=== PATIENT | male | born 1945 | race African-American/Black ===

== ENCOUNTER 2024-08-19 13:17 | Inpatient (IN) ==
[2024-08-19] MEDS: LR 1,000 ML IV 1,000 ML IV SCH (18:50)
[2024-08-19 18:54] LABS: BASOPHILS % (AUTO) 0.6 % (0.2-1.0); EOSINOPHILS # (AUTO) 0.4 x10^3/uL (0.0-0.2); EOSINOPHILS % (AUTO) 5.1 % (0.9-2.9); HEMATOCRIT 25.8 % (42.0-54.0); HEMOGLOBIN 8.3 g/dL (13.5-18.0); LYMPHOCYTES # (AUTO) 0.9 X10^3/uL (1.3-2.9); LYMPHOCYTES % (AUTO) 10.7 % (21.0-51.0); MEAN CORPUSCULAR HEMOGLOBIN 28.5 pg (27.0-34.0); MEAN CORPUSCULAR HGB CONC 32.2 g/dL (33.0-35.0); MEAN CORPUSCULAR VOLUME 88.4 fL (80.0-100.0); MEAN PLATELET VOLUME 7.3 fL (7.4-11.0); MONOCYTES # (AUTO) 0.4 x10^3/uL (0.3-0.8); MONOCYTES % (AUTO) 4.9 % (0.0-13.0); NEUTROPHILS # (AUTO) 6.8 x10^3/uL (2.2-4.8); NEUTROPHILS % (AUTO) 78.7 % (42.0-75.0); PLATELET COUNT 284 X10^3/uL (150.0-450.0); RED BLOOD COUNT 2.92 X10^6/uL (4.7-6.0); RED CELL DISTRIBUTION WIDTH 16.3 % (11.6-16.5); WHITE BLOOD COUNT 8.7 X10^3/uL (3.6-10.0)
[2024-08-19] MEDS ORDERED: PHARMACY CONSULT LTC MEDICATIONS XX SCH (19:00)
[2024-08-19 19:02] LABS: ALBUMIN 2.7 g/dL (3.4-5.0); CALCIUM 9.2 mg/dL (8.5-10.1); CARBON DIOXIDE 22.6 mmol/L (21-32); COR CA(FOR HYPOALB) 10.2 mg/dL (8.5-10.1); CREATININE 2.57 mg/dL (0.70-1.30); POTASSIUM 5.5 mmol/L (3.5-5.1); TOTAL PROTEIN 9.8 g/dL (6.4-8.2)
[2024-08-19] MEDS: MAXIPIME VIAL 1 GRAM 1 G in NS 50 ML IV 50 ML IV SCH (20:45)
[2024-08-20 05:46] LABS: BASOPHILS % (AUTO) 0.6 % (0.2-1.0); EOSINOPHILS # (AUTO) 0.6 x10^3/uL (0.0-0.2); EOSINOPHILS % (AUTO) 8.3 % (0.9-2.9); HEMATOCRIT 22.5 % (42.0-54.0); HEMOGLOBIN 7.3 g/dL (13.5-18.0); LYMPHOCYTES # (AUTO) 1.3 X10^3/uL (1.3-2.9); LYMPHOCYTES % (AUTO) 17.5 % (21.0-51.0); MEAN CORPUSCULAR HEMOGLOBIN 28.3 pg (27.0-34.0); MEAN CORPUSCULAR HGB CONC 32.4 g/dL (33.0-35.0); MEAN CORPUSCULAR VOLUME 87.5 fL (80.0-100.0); MONOCYTES # (AUTO) 0.4 x10^3/uL (0.3-0.8); MONOCYTES % (AUTO) 5.8 % (0.0-13.0); NEUTROPHILS % (AUTO) 67.8 % (42.0-75.0); PLATELET COUNT 266 X10^3/uL (150.0-450.0); RED BLOOD COUNT 2.57 X10^6/uL (4.7-6.0); RED CELL DISTRIBUTION WIDTH 16.5 % (11.6-16.5); WHITE BLOOD COUNT 7.4 X10^3/uL (3.6-10.0)
[2024-08-20 06:00] LABS: ALBUMIN 2.2 g/dL (3.4-5.0); CALCIUM 8.6 mg/dL (8.5-10.1); CARBON DIOXIDE 25.4 mmol/L (21-32); CREATININE 2.28 mg/dL (0.70-1.30); POTASSIUM 5.1 mmol/L (3.5-5.1); TOTAL PROTEIN 8.4 g/dL (6.4-8.2)
[2024-08-20] MEDS: NORCO 5/325 MG TAB PO PRN (11:28)
[2024-08-20] MEDS ORDERED: MELATONIN PO PRN (11:52)
[2024-08-20] MEDS ORDERED: NORCO 5/325 MG TAB PO PRN (11:52)
[2024-08-20] MEDS ORDERED: MILK OF MAGNESIA PO PRN (12:00)
[2024-08-20] MEDS ORDERED: ROBITUSSIN DM PO PRN (12:36)
--- NOTE | 2024-08-20 13:33 | DR.H&P ---
H&P History & Physical for Day of: H&P Date: 08/19/24 Chief Complaint Chief Complaint: infected wounds right foot, patient is not ambulatory and has history of CVA History of Present Illness History of Present Illness: This is an 79-year-old male currently resident of a intermediate facility with history of left above-knee amputation, diabetes, hypertension, hyperlipidemia, history of cerebrovascular accident with residual, anemia, gastro-esophageal reflux disease and atherosclerotic heart disease who was admitted to the hospital in [place], [place] for wounds to the right foot penetrating into the bone. Patient has studies consistent with osteomyelitis confirmed by podiatry. Patient was transferred to [facility] for definitive treatment of this which will probably require above-knee amputation Past Medical History Past Medical History: Coronary Artery Disease, Depression, Diabetes, Dyslipidemia, Gout and Hypertension Additional Medical History: BPH, dysphagia Past Surgical History Surgical History: Ortho Surgery and Other (left above knee amputation ) Social History Does patient currently use any type of tobacco product: No Have you used tobacco products in the last 12 months: No Alcohol Use: None Drug Use: None Medications Home Medications: Home Medications Medication Instructions Recorded Confirmed Type acetaminophen 325 mg tablet 650 mg PO Q4H PRN pain,fev er 08/19/24 08/19/24 History allopurinol 100 mg tablet 100 mg PO QDAY 08/19/2408/08 History amino acids-protein hydrolysate 15 60 ml PO TID 08/19/24 History gram-60 kcal/30 mL oral liquid (Proteinex) amlodipine 5 mg tablet 5 mg PO QDAY 08/19/24 History aspirin 81 mg chewable tablet 81 mg PO QDAY 08/19/24 0 08/19/24 History atorvastatin 80 mg tablet 80 mg PO HS 08/19/24 5 History cholecalciferol (vitamin D3) 25 25 mcg PO QDAY 5 08/19/24 History mcg (1,000 unit) tablet collagenase clostridium histo. 250 1 applic topical US EASDIRECTD 08/19/24 08/19/24 History unit/gram topical ointment (Santyl) dapagliflozin propanediol 5 mg 5 mg PO QDAY 08/19/24 0 08/19/24 History tablet (Farxiga) dextromethorphan-guaifenesin 5 10 ml PO Q4HR PRN 08/1908/19/24 History mg-100 mg/5 mL oral liquid (Robitussin Cough-Chest Congestion DM) docusate sodium 100 mg capsule 100 mg PO BID 08/19/24 08/19/24 History (Colace) famotidine 40 mg tablet (Pepcid) 40 mg PO HS 08/19/24 08/19/24 History folic acid 1 mg tablet 1 mg PO DAILY 08/19/2408/19 History gabapentin 100 mg tablet 200 mg PO BID 08/19/2408/19 History hydrocodone 5 mg-acetaminophen 325 1 tab PO Q6HR PRN P ain 08/19/24 08/19/24 History mg tablet magnesium hydroxide 400 mg/5 mL See Rx Instructions .R oute .COMPLEX 08/19/24 08/19/24 History oral suspension (Milk of Magnesia) melatonin 5 mg tablet 10 mg PO HS PRN 08/19/2403/03 History metoprolol succinate 25 mg 25 mg PO QDAY 08/19/2408/08 History tablet,extended release 24 hr mirtazapine 7.5 mg tablet 7.5 mg PO QHS 08/19/2408/19 History multivitamin 1 tab PO DAILY 08/19/2408/08 History nut.tx.gluc.intol,lac-free,soy 1 ea PO TID 08/19/24 History (Glucerna oral liquid) nutritional supplements 1 ea PO BID 08/19/24 5 History nystatin-triamcinolone 100,000 1 applic topical QDAY 0 08/19/24 08/19/24 History unit/g-0.1 % topical cream polyethylene glycol 3350 17 17 g PO DAILY 08/19/2403/03 History gram/dose oral powder (Miralax) sodium hypochlorite 0.25 % 1 applic topical USEASDIREC TD 08/19/24 08/19/24 History solution (Dakin's Solution) tamsulosin 0.4 mg capsule 0.4 mg PO DAILY 08/19/2403/03 History zinc oxide 1 applic topical DAILY 08/1908/19/24 History Allergies Allergies Allergy/AdvReac Type Severity Reaction Status Date / Time promethazine (From Phenergan) AdvReac Verified 08/19/24 18:26 Labs 08/20/24 05:10 08/20/24 05:10 Labs: Laboratory WBC 7.4 X10^3/uL (3.6-10.0) 08/20/24 05:10 RBC 2.57 X10^6/uL (4.7-6.0) L 08/20/24 05:10 Hgb 7.3 g/dL (13.5-18.0) L 08/20/24 05:10 Hct 22.5 % (42.0-54.0) L 08/20/24 05:10 MCV 87.5 fL (80.0-100.0) 08/20/24 05:10 MCH 28.3 pg (27.0-34.0) 08/20/24 05:10 MCHC 32.4 g/dL (33.0-35.0) L 08/20/24 05:10 RDW 16.5 % (11.6-16.5) 08/20/24 05:10 Plt Count 266 X10^3/uL (150.0-450.0) 08/20/24 05:10 MPV 8.0 fL (7.4-11.0) 08/20/24 05:10 Neut % (Auto) 67.8 % (42.0-75.0) 08/20/24 05:10 Lymph % (Auto) 17.5 % (21.0-51.0) L 08/20/24 05:10 [place] % (Auto) 5.8 % (0.0-13.0) 08/20/24 05:10 Eos % (Auto) 8.3 % (0.9-2.9) H 08/20/24 05:10 Baso % (Auto) 0.6 % (0.2-1.0) 08/20/24 05:10 Neut # (Auto) 5.0 x10^3/uL (2.2-4.8) H 08/20/24 05:10 Lymph # (Auto) 1.3 X10^3/uL (1.3-2.9) 08/20/24 05:10 [place] # (Auto) 0.4 x10^3/uL (0.3-0.8) 08/20/24 05:10 Eos # (Auto) 0.6 x10^3/uL (0.0-0.2) H 08/20/24 05:10 Baso # (Auto) 0.0 X10^3/uL (0.0-0.1) 08/20/24 05:10 Absolute Nucleated RBC 0.1 /100WBC 08/20/24 05:10 Sodium 142 mmol/L (136-145) 08/20/24 05:10 Corrected Sodium 143 mmol/L (136-145) 08/20/24 05:10 Potassium 5.1 mmol/L (3.5-5.1) 08/20/24 05:10 Chloride 109 mmol/L (98-107) H 08/20/24 05:10 Carbon Dioxide 25.4 mmol/L (21-32) 08/20/24 05:10 BUN 56 mg/dL (7-18) H 08/20/24 05:10 Creatinine 2.28 mg/dL (0.70-1.30) H 08/20/24 05:10 Est GFR (MDRD) Af Amer 36 (>60) L 08/20/24 05:10 Est GFR (MDRD) Non-Af 29 (>60) L 08/20/24 05:10 Glucose 127 mg/dL (65-99) H 08/20/24 05:10 POC Glucose (mg/dL) 159 mg/dL (65-99) H 08/20/24 12:13 Calcium 8.6 mg/dL (8.5-10.1) 08/20/24 05:10 Corrected Calcium 10.0 mg/dL (8.5-10.1) 08/20/24 05:10 Total Bilirubin 0.30 mg/dL (0.2-1.0) 08/20/24 05:10 AST 19 Units/L (15-37) 08/20/24 05:10 ALT 48 Units/L (12-78) 08/20/24 05:10 Alkaline Phosphatase 94 Units/L (46-116) 08/20/24 05:10 Total Protein 8.4 g/dL (6.4-8.2) H 08/20/24 05:10 Albumin 2.2 g/dL (3.4-5.0) L 08/20/24 05:10 Globulin 6.2 g/dL (2.5-4.5) H 08/20/24 05:10 Albumin/Globulin Ratio 0.4 Ratio (1.1-2.1) L 08/20/24 05:10 Physical Exam Vital Signs: Vital Signs Temperature 98.0 F Temperature 98.5 F Pulse Rate [Right Radial] 93 Pulse Rate [Right Radial] 95 Respiratory Rate 16 Respiratory Rate 18 Respiratory Rate 16 Blood Pressure [Right Arm] 131/66 Blood Pressure [Right Arm] 132/67 O2 Sat by Pulse Oximetry 100 O2 Sat by Pulse Oximetry 99 Oriented: Person; negative Time or Place Eyes: Normal Ear: Normal Nose: Normal Throat: Normal Respiratory: Diminished Throughout Cardiovascular: Normal and Other (Healed left above-knee amputation. Open wounds of the right foot penetrating to the bone. No palpable pulses right ankle) : Normal Auscultation: Bowel Sounds: Normal Palpation: Normal Tenderness: Normal Skin: Other (See above) Musculoskeletal: Right (Right foot wounds as described above, mild contraction right knee) and Left (Healed left above-knee amputation) Psychiatric: Other (Cannot assess. Patient does not make sense when answering questions) Mood Description: Depressed and Anxious Affect: Anxious and Depressed Assessment/Plan (1) Atherosclerosis of [place] arteries of extremities with intermittent claudication, right leg: Status: Acute Plan: Will have patient seen by the hospitalist service and consult for fitness for right above-knee amputation.. I contacted Dr. Tucker by text and he is aware. (2) Essential (primary) hypertension: Status: Acute Plan: Home medications (3) Depression: Status: Acute Plan: Home medications (4) Acid reflux: Status: Acute Plan: Home medications (5) Constipation: Status: Acute Plan: Home medications (6) Hyperlipidemia: Status: Acute Plan: Home medications (7) Gout: Status: Acute Plan: Home medications (8) BPH (benign prostatic hyperplasia): Status: Acute (9) Dysphagia: Status: Acute Plan: Soft diet (10) Acute cerebrovascular accident (CVA): Status: Acute Plan: Observation Review H&P Reviewed: Yes Patient was examined?: Yes
[2024-08-20] MEDS: MIRALAX POWDER (255 GRAMS BTL) PO SCH (14:06)
[2024-08-20] MEDS: ASPIRIN 81 MG CHEWTAB PO SCH (14:07)
[2024-08-20] MEDS: VITAMIN D3 25 mcg (1,000 UNITS) PO SCH (14:07)
[2024-08-20] MEDS: COLACE CAP 100 MG PO SCH (14:07)
[2024-08-20] MEDS: ZYLOPRIM PO SCH (14:07)
[2024-08-20] MEDS: NORVASC TAB 5 MG PO SCH (14:07)
[2024-08-20] MEDS: FLOMAX PO SCH (14:07)
[2024-08-20] MEDS: TOPROL XL PO SCH (14:07)
[2024-08-20] MEDS: FOLIC ACID TAB 1 MG PO SCH (14:07)
[2024-08-20] MEDS: FARXIGA PO SCH (14:07)
--- NOTE | 2024-08-20 15:01 | EKG ---
Test Reason : SURGICAL CLEARENCE Blood Pressure : */* mmHG Vent. Rate : 86 BPM Atrial Rate : 86 BPM P-R Int : 242 ms QRS Dur : 84 ms QT Int : 364 ms P-R-T Axes : 37 5 105 degrees QTc Int : 435 ms Sinus rhythm with 1st degree AV block Nonspecific T wave abnormality Abnormal ECG No previous ECGs available Confirmed by Navi Alex MD ([id number]) on 08/20/2024 5:36:48 PM Referred By: Confirmed By: Navi Alex MD
--- NOTE | 2024-08-20 16:36 | NOTE.SOAP ---
Soap Note Note for Day of Date of Exam: 08/20/24 Subjective Data Subjective Data: Patient admitted with gangrenous changes of the right foot in need of right leg amputation. Multiple medical problems. Objective Data Temperature: 98.0 F Pulse Rate: 93 Respiratory Rate: 16 Blood Pressure: 131/66 O2 Sat by Pulse Oximetry: 100 Objective Data: exam unchanged Assessment Assessment: Ischemic right foot with open wounds. Patient not ambulatory. Plan Plan: Consult Dr. Tucker. Patient will require right above-knee amputation tentatively scheduled for Friday
[2024-08-20] MEDS: REMERON PO SCH (21:37)
[2024-08-20] MEDS: LIPITOR TAB 80 MG PO SCH (21:38)
[2024-08-20] MEDS: NEURONTIN CAP 100 MG PO SCH (21:38)
[2024-08-20] MEDS: PEPCID TAB 40 MG PO SCH (21:39)
[2024-08-20 23:00] VITALS: BMI 20.9
[2024-08-21 06:45] LABS: ALANINE AMINOTRANSFERASE 43 Units/L (12-78); ALBUMIN 2.1 g/dL (3.4-5.0); ALKALINE PHOSPHATASE 89 Units/L (46-116); ASPARTATE AMINO TRANSFERASE 20 Units/L (15-37); BASOPHILS # (AUTO) 0.1 X10^3/uL (0.0-0.1); BASOPHILS % (AUTO) 0.8 % (0.2-1.0); BLOOD UREA NITROGEN 46 mg/dL (7-18); CALCIUM 8.6 mg/dL (8.5-10.1); CARBON DIOXIDE 24.7 mmol/L (21-32); CHLORIDE 109 mmol/L (98-107); COR CA(FOR HYPOALB) 10.1 mg/dL (8.5-10.1); CREATININE 2.19 mg/dL (0.70-1.30); EOSINOPHILS # (AUTO) 0.7 x10^3/uL (0.0-0.2); EOSINOPHILS % (AUTO) 9.3 % (0.9-2.9); GLUCOSE 100 mg/dL (65-99); HEMATOCRIT 21.5 % (42.0-54.0); LYMPHOCYTES # (AUTO) 1.4 X10^3/uL (1.3-2.9); LYMPHOCYTES % (AUTO) 19.2 % (21.0-51.0); MEAN CORPUSCULAR HEMOGLOBIN 28.5 pg (27.0-34.0); MEAN CORPUSCULAR HGB CONC 32.8 g/dL (33.0-35.0); MEAN CORPUSCULAR VOLUME 86.7 fL (80.0-100.0); MEAN PLATELET VOLUME 8.3 fL (7.4-11.0); MONOCYTES # (AUTO) 0.5 x10^3/uL (0.3-0.8); MONOCYTES % (AUTO) 6.6 % (0.0-13.0); NEUTROPHILS # (AUTO) 4.6 x10^3/uL (2.2-4.8); NEUTROPHILS % (AUTO) 64.1 % (42.0-75.0); PLATELET COUNT 233 X10^3/uL (150.0-450.0); POTASSIUM 4.9 mmol/L (3.5-5.1); RED BLOOD COUNT 2.47 X10^6/uL (4.7-6.0); RED CELL DISTRIBUTION WIDTH 16.2 % (11.6-16.5); SODIUM 141 mmol/L (136-145); TOTAL PROTEIN 6.9 g/dL (6.4-8.2); WHITE BLOOD COUNT 7.2 X10^3/uL (3.6-10.0); eGFR NON BLACK RACES 31 (>60)
[2024-08-21 09:03] LABS: RETICULOCYTE % 0.87 % (0.8-2.2)
[2024-08-21] MEDS: TAB-A-VITE PO SCH (09:04)
[2024-08-21] MEDS ORDERED: BUTT CREAM (COMPOUND) EXT PRN (09:04)
[2024-08-21 09:36] LABS: IRON 32 ug/dL (50-175); TOTAL IRON BINDING CAPACITY 149 ug/dL (250-450)
[2024-08-21] MEDS: SANTYL EXT SCH (10:45)
[2024-08-21] MEDS: DAKINS SOLUTION FULL STRENGTH EXT SCH (10:45)
[2024-08-21] MEDS: NS 100 ML IV 100 ML with VENOFER 200 MG IV ONE (15:15)
[2024-08-21] MEDS: PROCRIT or EPOGEN VIAL 10,000 UNITS SC ONE (15:17)
[2024-08-21] MEDS: NovoLIN R (or HumuLIN R) SUBCUT PRN (17:00)
--- NOTE | 2024-08-21 18:14 | DR.CONSULT ---
CONSULT Consultation for Day of: Date: 08/21/24 Chief Complaint Chief Complaint: foot wound Allergies Allergies Allergy/AdvReac Type Severity Reaction Status Date / Time promethazine (From Phenergan) AdvReac Verified 08/19/24 18:26 History of Present Illness History of Present Illness: Consulted by vascular surgery for preoperative clearance and management of chronic conditions. Has a right foot wound that is not healing. Pending amputation once medically clear. Already has a left AKA. Labs overnight show worsening anemia. Patient refuses blood and blood products due to adventism preferences. He will except Procrit and iron. Iron panel has been drawn with Procrit and iron infusion ordered. ROS: 12 point ROS difficult to obtain due to dysarthria but chart reviewed, discussion with nurses, and discussion with patient as best as able show negative except as noted above. PE: Elderly male in no acute distress. Dysarthric speech. Hearing intact conversation. EOMI. Heart regular rate and rhythm with a murmur. Lungs are clear. Bowel sounds are present and belly is soft. Right foot wound is malodorous. Past Medical History Past Medical History: Coronary Artery Disease, Depression, Diabetes, Dyslipidemia, Gout and Hypertension Additional Medical History: BPH, dysphagia Past Surgical History Surgical History: Ortho Surgery and Other (left above knee amputation ) Social History Does patient currently use any type of tobacco product: No Have you used tobacco products in the last 12 months: No Alcohol Use: None Drug Use: None Medications Home Medications: promethazine (From Phenergan) Adverse Reaction (Verified 08/19/24 18:26) CONTINUE taking the following medications acetaminophen 325 mg tablet 650 mg PO Q4H PRN pain,fever 08/19/24 [History] allopurinol 100 mg tablet 100 mg PO QDAY 08/19/24 [History] amino acids-protein hydrolysate 15 gram-60 kcal/30 mL oral liquid (Proteinex) 60 ml PO TID 08/19/24 [History] amlodipine 5 mg tablet 5 mg PO QDAY 08/19/24 [History] aspirin 81 mg chewable tablet 81 mg PO QDAY 08/19/24 [History] atorvastatin 80 mg tablet 80 mg PO HS 08/19/24 [History] cholecalciferol (vitamin D3) 25 mcg (1,000 unit) tablet 25 mcg PO QDAY 08/19/24 [History] collagenase clostridium histo. 250 unit/gram topical ointment (Santyl) 1 applic topical USEASDIRECTD 08/19/24 [History] dapagliflozin propanediol 5 mg tablet (Farxiga) 5 mg PO QDAY 08/19/24 [History] dextromethorphan-guaifenesin 5 mg-100 mg/5 mL oral liquid (Robitussin Cough- Chest Congestion DM) 10 ml PO Q4HR PRN 08/19/24 [History] docusate sodium 100 mg capsule (Colace) 100 mg PO BID 08/19/24 [History] famotidine 40 mg tablet (Pepcid) 40 mg PO HS 08/19/24 [History] folic acid 1 mg tablet 1 mg PO DAILY 08/19/24 [History] gabapentin 100 mg tablet 200 mg PO BID 08/19/24 [History] hydrocodone 5 mg-acetaminophen 325 mg tablet 1 tab PO Q6HR PRN Pain 08/19/24 [History] magnesium hydroxide 400 mg/5 mL oral suspension (Milk of Magnesia) See Rx Instructions .Route .COMPLEX 08/19/24 [History] melatonin 5 mg tablet 10 mg PO HS PRN 08/19/24 [History] metoprolol succinate 25 mg tablet,extended release 24 hr 25 mg PO QDAY 08/19/24 [History] mirtazapine 7.5 mg tablet 7.5 mg PO QHS 08/19/24 [History] multivitamin 1 tab PO DAILY 08/19/24 [History] nut.tx.gluc.intol,lac-free,soy (Glucerna oral liquid) 1 ea PO TID 08/19/24 [History] nutritional supplements 1 ea PO BID 08/19/24 [History] nystatin-triamcinolone 100,000 unit/g-0.1 % topical cream 1 applic topical QDAY 08/19/24 [History] polyethylene glycol 3350 17 gram/dose oral powder (Miralax) 17 g PO DAILY 08/19/24 [History] sodium hypochlorite 0.25 % solution (Dakin's Solution) 1 applic topical USEASDIRECTD 08/19/24 [History] tamsulosin 0.4 mg capsule 0.4 mg PO DAILY 08/19/24 [History] zinc oxide 1 applic topical DAILY 08/19/24 [History] Physical Exam Vital Signs: Vital Signs Temperature 97.8 F Temperature 98.1 F Pulse Rate [Right Radial] 90 Pulse Rate [Right Radial] 84 Respiratory Rate 18 Respiratory Rate 18 Respiratory Rate 18 Blood Pressure [Right Arm] 172/70 Blood Pressure [Right Arm] 133/66 O2 Sat by Pulse Oximetry 95 O2 Sat by Pulse Oximetry 99 Plan (1) Anemia due to chronic kidney disease: Status: Acute Qualifiers: Chronic kidney disease stage: stage 3 (moderate) Chronic kidney disease stage 3 subtype: stage 3b (GFR 30-44) Qualified Code(s): N18.32 - Chronic kidney disease, stage 3b; D63.1 - Anemia in chronic kidney disease Narrative Support Text: Procrit and iron infusion over the weekend. Monitor labs closely. No blood or blood products given patient's request. (2) Cardiac murmur: Status: Acute Narrative Support Text: Needs an echo. (3) Atherosclerosis of [place] arteries of extremities with intermittent claudication, right leg: Status: Acute Narrative Support Text: Pending AKA with surgery after cardiac clearance. (4) Essential (primary) hypertension: Status: Acute (5) Depression: Status: Acute Qualifiers: Depression Type: major depressive disorder Major depression recurrence: recurrent Active/Remission status: in partial remission Qualified Code(s): F33.41 - Major depressive disorder, recurrent, in partial remission (6) Acid reflux: Status: Acute Qualifiers: Esophagitis presence: without esophagitis Qualified Code(s): K21.9 - Gastro-esophageal reflux disease without esophagitis (7) Constipation: Status: Acute Qualifiers: Constipation type: chronic idiopathic constipation Qualified Code(s): K59.04 - Chronic idiopathic constipation (8) Hyperlipidemia: Status: Acute Qualifiers: Hyperlipidemia type: mixed hyperlipidemia Qualified Code(s): E78.2 - Mixed hyperlipidemia (9) Gout: Status: Acute Qualifiers: Gout site: unspecified site Gout etiology: due to renal impairment Chronicity: chronic Presence of tophus: without tophus Qualified Code(s): M1A.30X0 - Chronic gout due to renal impairment, unspecified site, without tophus (tophi) (10) BPH (benign prostatic hyperplasia): Status: Acute Qualifiers: Lower urinary tract symptom presence: symptoms present Lower urinary tract symptom detail: post-void dribbling Qualified Code(s): N40.1 - Benign prostatic hyperplasia with lower urinary tract symptoms; N39.43 - Post-void dribbling (11) Dysphagia: Status: Acute Qualifiers: Dysphagia type: unspecified Qualified Code(s): R13.10 - Dysphagia, unspecified (12) Acute cerebrovascular accident (CVA): Status: Acute Narrative Support Text: With hemiparesis, dysarthria, and dysphagia.
[2024-08-21] MEDS: SNACK - Diabetic Appropriate PO SCH (20:00)
[2024-08-22 06:03] LABS: BASOPHILS % (AUTO) 0.5 % (0.2-1.0); EOSINOPHILS # (AUTO) 0.6 x10^3/uL (0.0-0.2); EOSINOPHILS % (AUTO) 9.2 % (0.9-2.9); LYMPHOCYTES # (AUTO) 1.1 X10^3/uL (1.3-2.9); MEAN CORPUSCULAR HEMOGLOBIN 28.4 pg (27.0-34.0); MEAN CORPUSCULAR HGB CONC 32.9 g/dL (33.0-35.0); MEAN CORPUSCULAR VOLUME 86.5 fL (80.0-100.0); MEAN PLATELET VOLUME 7.8 fL (7.4-11.0); MONOCYTES # (AUTO) 0.5 x10^3/uL (0.3-0.8); MONOCYTES % (AUTO) 7.2 % (0.0-13.0); NEUTROPHILS # (AUTO) 4.5 x10^3/uL (2.2-4.8); NEUTROPHILS % (AUTO) 67.1 % (42.0-75.0); PLATELET COUNT 241 X10^3/uL (150.0-450.0); RED BLOOD COUNT 2.42 X10^6/uL (4.7-6.0); WHITE BLOOD COUNT 6.7 X10^3/uL (3.6-10.0)
[2024-08-22 06:05] LABS: HEMOGLOBIN 6.9 g/dL (13.5-18.0)
[2024-08-22 06:14] LABS: ALANINE AMINOTRANSFERASE 44 Units/L (12-78); ALBUMIN 2.1 g/dL (3.4-5.0); ALKALINE PHOSPHATASE 88 Units/L (46-116); ASPARTATE AMINO TRANSFERASE 21 Units/L (15-37); BLOOD UREA NITROGEN 36 mg/dL (7-18); CALCIUM 8.4 mg/dL (8.5-10.1); CARBON DIOXIDE 25.2 mmol/L (21-32); CHLORIDE 108 mmol/L (98-107); COR CA(FOR HYPOALB) 9.9 mg/dL (8.5-10.1); CREATININE 2.07 mg/dL (0.70-1.30); GLUCOSE 103 mg/dL (65-99); POTASSIUM 4.8 mmol/L (3.5-5.1); SODIUM 140 mmol/L (136-145); TOTAL PROTEIN 6.7 g/dL (6.4-8.2); eGFR NON BLACK RACES 33 (>60)
--- NOTE | 2024-08-22 08:07 | RAD ---
EXAM: Portable AP chest HISTORY: Preop COMPARISON: None br.br.br pulmonary disease, CHF, pleural effusion or other acute process. IMPRESSION: No acute chest findings. THIS IS AN ELECTRONICALLY VERIFIED FINAL REPORT 08/22/2024 8:03 AM - Electronically signed by Jerman Cardenas MD
[2024-08-22] MEDS: INJECTAFER 750 MG in NS 250 ML IV 250 ML IV NR (10:48)
--- NOTE | 2024-08-22 16:23 | NOTE.SOAP ---
Soap Note Note for Day of Date of Exam: 08/22/24 Subjective Data Subjective Data: Protein levels low, hemoglobin 6.9, GFR stable. Did get Procrit and iron yesterday. Surgery on hold for now. Echo ordered for tomorrow. No overnight events per patient or nursing. Objective Data Objective Data: Elderly male in no acute distress. Dysarthric speech. Heart regular rate and rhythm but systolic murmur present. Lungs clear with shallow respirations. Bowel sounds present. Wound less malodorous today. Assessment Assessment: 1. Systolic murmur 2. Anemia of chronic kidney disease 3B 3. DM2 with hyperglycemia and CKD 3B 4. CVA with residual left, nondominant sided weakness, dysarthria, dysphagia, and vascular dementia. Plan Plan: Surgery on hold. Echo in the morning. Continue antibiotics. Continue wound care.
--- NOTE | 2024-08-23 00:09 | NOTE.SOAP ---
Soap Note Note for Day of Date of Exam: 08/22/24 Subjective Data Subjective Data: Patient with gangrenous changes of the right foot. Already has had left above- knee amputation not ambulatory. Patient is Religious and hemoglobin has been noted to be 6.9 after hydration. Tentatively was planning about amputation and we will put that on hold for now. Objective Data Temperature: 98.2 F Pulse Rate: 86 Respiratory Rate: 18 Blood Pressure: 125/59 O2 Sat by Pulse Oximetry: 98 Objective Data: Right foot dressed. Unchanged. Patient receiving iron and Procrit Assessment Assessment: Gangrenous changes right foot. Will need above-knee amputation. Plan Plan: Will hold on amputation at this point due to low hemoglobin and patient is Religious and will not accept blood or blood products. Will except Procrit and iron however.
[2024-08-23 04:18] LABS: BASOPHILS % (AUTO) 0.3 % (0.2-1.0); EOSINOPHILS # (AUTO) 0.6 x10^3/uL (0.0-0.2); EOSINOPHILS % (AUTO) 5.8 % (0.9-2.9); HEMATOCRIT 23.3 % (42.0-54.0); HEMOGLOBIN 7.7 g/dL (13.5-18.0); LYMPHOCYTES % (AUTO) 9.9 % (21.0-51.0); MEAN CORPUSCULAR HEMOGLOBIN 28.5 pg (27.0-34.0); MEAN CORPUSCULAR HGB CONC 33.1 g/dL (33.0-35.0); MEAN CORPUSCULAR VOLUME 86.2 fL (80.0-100.0); MEAN PLATELET VOLUME 6.9 fL (7.4-11.0); MONOCYTES # (AUTO) 0.6 x10^3/uL (0.3-0.8); NEUTROPHILS # (AUTO) 7.8 x10^3/uL (2.2-4.8); PLATELET COUNT 259 X10^3/uL (150.0-450.0); RED BLOOD COUNT 2.71 X10^6/uL (4.7-6.0); RED CELL DISTRIBUTION WIDTH 16.2 % (11.6-16.5); WHITE BLOOD COUNT 9.9 X10^3/uL (3.6-10.0)
[2024-08-23 04:31] LABS: ALBUMIN 2.2 g/dL (3.4-5.0); CALCIUM 8.6 mg/dL (8.5-10.1); CARBON DIOXIDE 29.3 mmol/L (21-32); CREATININE 2.07 mg/dL (0.70-1.30); POTASSIUM 4.7 mmol/L (3.5-5.1)
--- NOTE | 2024-08-23 05:06 | CT ---
EXAM: CT HEAD WITHOUT CONTRAST HISTORY: AMS; CVA, HTN, DM, GERD, GOUT SX: ORTHO, LEFT AKA COMPARISON: None. TECHNIQUE: Axial CT images were obtained through the brain without contrast. All CT scans at this facility use dose modulation, iterative reconstruction, and/or weight based dosing when appropriate to reduce radiation dose to as low as reasonably achievable. FINDINGS: BRAIN: There is moderate diffuse atrophy with proportionate enlargement of the cerebral sulci and ventricular system. Decreased attenuation in the periventricular white matter is compatible with but not specific for chronic small vessel ischemic changes. No evidence of acute infarct intra or extraa xial hemorrhage mass effect or hydrocephalus. CALVARIUM: Normal ADDITIONAL FINDINGS: The visualized paranasal sinuses and mastoid air cells are clear. Orbits are grossly unremarkable. IMPRESSION: No evidence of acute intracranial process. THIS IS AN ELECTRONICALLY VERIFIED FINAL REPORT 08/23/2024 5:02 AM - Electronically signed by Brooklyn Jackson MD
--- NOTE | 2024-08-23 09:53 | NOTE.SOAP ---
Soap Note Note for Day of Date of Exam: 08/23/24 Subjective Data Subjective Data: Had an episode of unresponsiveness overnight. Vitals were stable. He did not respond to painful stimuli. Did start to wake up during his CT. Benign findings. Back to baseline this morning per nursing. Resting comfortably during my exam. Objective Data Objective Data: Elderly male in no acute distress. Resting comfortably in bed. Head NCAT. Heart regular rate and rhythm with murmur. Lungs diminished but clear. Bowel sounds are present. Assessment Assessment: 1. Systolic murmur 2. Anemia of chronic kidney disease 3B 3. DM2 with hyperglycemia and CKD 3B 4. CVA with residual left, nondominant sided weakness, dysarthria, dysphagia, and vascular dementia. Plan Plan: Uncertain of cause of the unresponsive episode, considering that he might be exhausted from his new location and all the activity in the hospital. Proceed with echo. Labs overall stable with improvement of hemoglobin.
--- NOTE | 2024-08-23 20:37 | NOTE.SOAP ---
Soap Note Note for Day of Date of Exam: 08/23/24 Subjective Data Subjective Data: Unresponsive episode last night. Now resolved. CT scan of the head negative. Patient hemoglobin up to 7.7. Stable vital signs. Wound of the right leg unchanged. Objective Data Temperature: 98.4 F Pulse Rate: 89 Respiratory Rate: 20 Blood Pressure: 141/65 O2 Sat by Pulse Oximetry: 100 Objective Data: Wounds right foot under change Assessment Assessment: Ischemic wounds of the right leg in this nonambulatory patient. Synagogue with hemoglobin of 7.7 has been receiving iron and Procrit Plan Plan: Will schedule for right above-knee amputation. Patient cleared by medical service.
[2024-08-23] MEDS: PEPCID TAB 20 MG PO SCH (21:58)
[2024-08-24 07:49] LABS: LYMPHOCYTES # (AUTO) 1.1 X10^3/uL (1.3-2.9); MEAN CORPUSCULAR HEMOGLOBIN 28.7 pg (27.0-34.0); MONOCYTES # (AUTO) 0.6 x10^3/uL (0.3-0.8); MONOCYTES % (AUTO) 6.7 % (0.0-13.0)
[2024-08-24 07:56] LABS: BASOPHILS # (AUTO) 0.1 X10^3/uL (0.0-0.1); BASOPHILS % (AUTO) 0.6 % (0.2-1.0); EOSINOPHILS # (AUTO) 0.5 x10^3/uL (0.0-0.2); EOSINOPHILS % (AUTO) 5.1 % (0.9-2.9); LYMPHOCYTES % (AUTO) 12.2 % (21.0-51.0); MEAN CORPUSCULAR HGB CONC 32.9 g/dL (33.0-35.0); MEAN CORPUSCULAR VOLUME 87.1 fL (80.0-100.0); MEAN PLATELET VOLUME 7.3 fL (7.4-11.0); NEUTROPHILS # (AUTO) 6.8 x10^3/uL (2.2-4.8); NEUTROPHILS % (AUTO) 75.4 % (42.0-75.0); PLATELET COUNT 261 X10^3/uL (150.0-450.0); RED BLOOD COUNT 2.41 X10^6/uL (4.7-6.0); RED CELL DISTRIBUTION WIDTH 15.8 % (11.6-16.5)
[2024-08-24 08:04] LABS: HEMOGLOBIN 6.9 g/dL (13.5-18.0)
[2024-08-24 08:09] LABS: ALANINE AMINOTRANSFERASE 31 Units/L (12-78); ALKALINE PHOSPHATASE 97 Units/L (46-116); ASPARTATE AMINO TRANSFERASE 14 Units/L (15-37); BLOOD UREA NITROGEN 25 mg/dL (7-18); CALCIUM 8.5 mg/dL (8.5-10.1); CARBON DIOXIDE 27.1 mmol/L (21-32); CHLORIDE 107 mmol/L (98-107); COR CA(FOR HYPOALB) 10.1 mg/dL (8.5-10.1); GLUCOSE 81 mg/dL (65-99); POTASSIUM 4.9 mmol/L (3.5-5.1); SODIUM 140 mmol/L (136-145); TOTAL PROTEIN 6.7 g/dL (6.4-8.2); eGFR NON BLACK RACES 34 (>60)
--- NOTE | 2024-08-24 12:33 | NOTE.SOAP ---
Soap Note Note for Day of Date of Exam: 08/24/24 Subjective Data Subjective Data: Hemoglobin under 7 again today. Family member did arrive and stated that he was not a Congregational but all of his [facility] records state he is. Pt also reports being a JW. Objective Data Objective Data: Resting comfortably. Lungs clear. RRR. Bowel sounds present. Assessment Assessment: 1. Systolic murmur 2. Anemia of chronic kidney disease 3B 3. DM2 with hyperglycemia and CKD 3B 4. CVA with residual left, nondominant sided weakness, dysarthria, dysphagia, and vascular dementia. Plan Plan: Continued anemia, AKA planned for today, should be minimal blood loss. We reviewed patient's chart more thoroughly to make sure that he is a Congregational and has signed did not want blood. That was his report to us and we will plan to honor it. Son is requesting blood be given, if needed.
[2024-08-24] MEDS: PROCRIT or EPOGEN VIAL 10,000 UNITS SC SCH (14:39)
--- NOTE | 2024-08-24 15:43 | NOTE.SOAP ---
Soap Note Note for Day of Date of Exam: 08/24/24 Subjective Data Subjective Data: Patient was scheduled for right above-knee amputation today but had to be canceled due to other more urgent cases. Will seek to reschedule. Patient remained stable. Hemoglobin is stable but patient is Amish. Objective Data Temperature: 98.6 F Pulse Rate: 93 Respiratory Rate: 21 Blood Pressure: 125/71 O2 Sat by Pulse Oximetry: 100 Objective Data: Patient with absent Doppler flow of the right ankle. Nonhealing wounds to the right foot. Hemoglobin equals 6.9 Assessment Assessment: Rectal ischemia of the right leg in this nonambulatory patient who has already had a left above-knee amputation Plan Plan: Will reschedule right above-knee amputation
[2024-08-24] MEDS: TYLENOL 325 MG TAB PO PRN (18:54)
[2024-08-24] MEDS: NS 250 ML IV 25 ML IV PRN (20:41)
[2024-08-25] MEDS: HIBICLENS WASH EXT ONE (03:20)
[2024-08-25 03:34] LABS: BASOPHILS % (AUTO) 0.4 % (0.2-1.0); EOSINOPHILS # (AUTO) 0.5 x10^3/uL (0.0-0.2); HEMATOCRIT 28.6 % (42.0-54.0); LYMPHOCYTES # (AUTO) 0.7 X10^3/uL (1.3-2.9); LYMPHOCYTES % (AUTO) 8.2 % (21.0-51.0); MEAN CORPUSCULAR HEMOGLOBIN 28.3 pg (27.0-34.0); MEAN CORPUSCULAR HGB CONC 33.2 g/dL (33.0-35.0); MEAN CORPUSCULAR VOLUME 85.3 fL (80.0-100.0); MEAN PLATELET VOLUME 6.7 fL (7.4-11.0); MONOCYTES # (AUTO) 0.6 x10^3/uL (0.3-0.8); MONOCYTES % (AUTO) 6.6 % (0.0-13.0); NEUTROPHILS # (AUTO) 6.7 x10^3/uL (2.2-4.8); NEUTROPHILS % (AUTO) 78.8 % (42.0-75.0); PLATELET COUNT 259 X10^3/uL (150.0-450.0); RED BLOOD COUNT 3.36 X10^6/uL (4.7-6.0); RED CELL DISTRIBUTION WIDTH 17.6 % (11.6-16.5); WHITE BLOOD COUNT 8.5 X10^3/uL (3.6-10.0)
[2024-08-25 03:36] LABS: HEMOGLOBIN 9.5 g/dL (13.5-18.0)
[2024-08-25 03:48] LABS: ALANINE AMINOTRANSFERASE 29 Units/L (12-78); ALBUMIN 2.1 g/dL (3.4-5.0); ALKALINE PHOSPHATASE 98 Units/L (46-116); ASPARTATE AMINO TRANSFERASE 19 Units/L (15-37); BLOOD UREA NITROGEN 25 mg/dL (7-18); CALCIUM 8.6 mg/dL (8.5-10.1); CARBON DIOXIDE 24.9 mmol/L (21-32); CHLORIDE 108 mmol/L (98-107); COR CA(FOR HYPOALB) 10.1 mg/dL (8.5-10.1); CREATININE 2.11 mg/dL (0.70-1.30); GLUCOSE 89 mg/dL (65-99); POTASSIUM 4.6 mmol/L (3.5-5.1); SODIUM 140 mmol/L (136-145); TOTAL PROTEIN 7.9 g/dL (6.4-8.2); eGFR NON BLACK RACES 32 (>60)
[2024-08-25] MEDS ORDERED: ZOFRAN INJ 4 MG VIAL ONE (06:50)
[2024-08-25] MEDS ORDERED: MARCAINE SPINAL ONE (06:51)
[2024-08-25] MEDS ORDERED: XYLOCAINE 2 % (PLAIN) ONE (06:51)
[2024-08-25] MEDS ORDERED: PRECEDEX INJ VIAL ONE (06:56)
[2024-08-25] MEDS ORDERED: MARCAINE 0.5% ONE (07:19)
--- NOTE | 2024-08-25 12:39 | NOTE.SOAP ---
Soap Note Note for Day of Date of Exam: 08/25/24 Subjective Data Subjective Data: Patient reported to be Baptism and had not excepted blood but he and his family had a talk and then he said he was not chills with this and did except units of blood. Post transfusion hemoglobin was 9.5 g. Patient scheduled for right above-knee amputation today but refused. He has not been declared incompetent. Objective Data Temperature: 98.3 F Pulse Rate: 93 Respiratory Rate: 19 Blood Pressure: 160/93 O2 Sat by Pulse Oximetry: 100 Objective Data: Multiple wounds to the right foot lateral wound measures 6 x 3 x 0.5 cm with small amount of eschar and no significant cellulitis. Small amount of drainage has other wounds laterally measuring 2 cm in diameter and approximately 3 mm in depth. The biggest problem is underlying osteomyelitis of these wounds and the patient that is not ambulatory and has already had a left above-knee amputation. Assessment Assessment: Osteomyelitis of the right foot with wounds and nonambulatory patient. Would recommend above-knee amputation but patient refuses. Plan Plan: Will plan discharge back to intermediate facility unfortunately in this setting he is a prime candidate to be continued referred to the emergency room's for these wounds which he does not want treated. This will need to be addressed at the level of the intermediate facility
--- NOTE | 2024-08-25 16:41 | NOTE.SOAP ---
Soap Note Note for Day of Date of Exam: 08/25/24 Subjective Data Subjective Data: Did receive 2 units yesterday. Patient did agree to get them along with son and [id number] are requesting them. Hemoglobin much improved. Patient now declining surgery. Plans to return back to facility for wound care there. Objective Data Objective Data: Elderly male in no acute distress. Heart regular rate and rhythm with clear lungs. Bowel sounds present. Assessment Assessment: 1. Chronic iron deficiency anemia 2. Right lower extremity wounds 3. Cognitive communication deficit Plan Plan: Agree with surgery as planned.
[2024-08-26 06:10] LABS: BASOPHILS % (AUTO) 0.4 % (0.2-1.0); EOSINOPHILS # (AUTO) 0.6 x10^3/uL (0.0-0.2); EOSINOPHILS % (AUTO) 5.4 % (0.9-2.9); HEMATOCRIT 29.3 % (42.0-54.0); HEMOGLOBIN 9.6 g/dL (13.5-18.0); LYMPHOCYTES # (AUTO) 1.1 X10^3/uL (1.3-2.9); LYMPHOCYTES % (AUTO) 9.2 % (21.0-51.0); MEAN CORPUSCULAR HEMOGLOBIN 27.9 pg (27.0-34.0); MEAN CORPUSCULAR HGB CONC 32.7 g/dL (33.0-35.0); MEAN CORPUSCULAR VOLUME 85.4 fL (80.0-100.0); MEAN PLATELET VOLUME 7.8 fL (7.4-11.0); MONOCYTES % (AUTO) 8.2 % (0.0-13.0); NEUTROPHILS % (AUTO) 76.8 % (42.0-75.0); PLATELET COUNT 293 X10^3/uL (150.0-450.0); RED BLOOD COUNT 3.43 X10^6/uL (4.7-6.0); RED CELL DISTRIBUTION WIDTH 17.6 % (11.6-16.5); WHITE BLOOD COUNT 11.8 X10^3/uL (3.6-10.0)
[2024-08-26] MEDS: HIBICLENS WASH ONE (06:25)
[2024-08-26 06:28] LABS: ALANINE AMINOTRANSFERASE 25 Units/L (12-78); ALBUMIN 2.1 g/dL (3.4-5.0); ALKALINE PHOSPHATASE 101 Units/L (46-116); ASPARTATE AMINO TRANSFERASE 17 Units/L (15-37); BLOOD UREA NITROGEN 22 mg/dL (7-18); CALCIUM 8.4 mg/dL (8.5-10.1); CARBON DIOXIDE 24.1 mmol/L (21-32); CHLORIDE 106 mmol/L (98-107); COR CA(FOR HYPOALB) 9.9 mg/dL (8.5-10.1); GLUCOSE 93 mg/dL (65-99); POTASSIUM 4.1 mmol/L (3.5-5.1); SODIUM 139 mmol/L (136-145); TOTAL PROTEIN 8.1 g/dL (6.4-8.2); eGFR NON BLACK RACES 32 (>60)
--- NOTE | 2024-08-26 08:56 | NOTE.SOAP ---
Soap Note Note for Day of Date of Exam: 08/26/24 Subjective Data Subjective Data: Patient now has agreed to have surgery. That is planned for later today. Plan is still an AKA. Hemoglobin stable after 2 units greater than 24 hours ago. Objective Data Objective Data: Thin, elderly male resting in bed. Heart regular rate and rhythm. Lungs are clear. Bowel sounds present. Assessment Assessment: 1. Chronic iron deficiency anemia 2. PAD 3. Nonhealing lower extremity wounds Plan Plan: Proceed with AKA. Discharge back to [facility] once stable. Continue to monitor vitals and labs
[2024-08-26] MEDS: NS 1,000 ML IV 700 ML IV PRN (12:15)
[2024-08-26] MEDS: ZOFRAN INJ 4 MG VIAL IVP PRN (12:20)
[2024-08-26] MEDS: PEPCID 20 MG VIAL IVP PRN (12:20)
[2024-08-26] MEDS: ANCEF VIAL 1 GRAM IV PRN (12:20)
[2024-08-26] MEDS: VERSED IVP PRN (12:25)
[2024-08-26] MEDS: NS 1,000 ML IV 1,000 ML ONE (12:29)
[2024-08-26] MEDS: ZOFRAN INJ 4 MG VIAL ONE (12:35)
[2024-08-26] MEDS: VERSED ONE (12:40)
[2024-08-26] MEDS: PEPCID 20 MG VIAL ONE (12:42)
[2024-08-26] MEDS: MARCAINE SPINAL ONE (12:48)
[2024-08-26] MEDS: ANCEF VIAL 1 GRAM ONE (13:05)
[2024-08-26] MEDS: NS 100 ML IV 100 ML ONE (13:05)
[2024-08-26] MEDS: DIPRIVAN VIAL 20 ML ONE (13:20)
[2024-08-26] MEDS: KETAMINE HCL IV PRN (13:25)
[2024-08-26] MEDS: DIPRIVAN VIAL 50 ML IVP PRN (13:25)
[2024-08-26] MEDS: EPHEDRINE SULFATE INJ ONE (13:28)
[2024-08-26] MEDS ORDERED: DILAUDID INJ IVP PRN (13:37)
[2024-08-26] MEDS ORDERED: ZOFRAN INJ 4 MG VIAL IVP PRN (13:37)
[2024-08-26] MEDS ORDERED: BENADRYL INJ 50 MG VIAL IVP PRN (13:37)
[2024-08-26] MEDS ORDERED: BARHEMSYS INJ IVP PRN (13:37)
--- NOTE | 2024-08-26 14:10 | OR.IMMED ---
IMMEDIATE POST-OP NOTE Immediate Post-Op Note Date of surgery/procedure: 08/26/24 Pre-Op Diagnosis: Gangrene/osteomyelitis right foot Post-Op Diagnosis: Same Procedure: Right above-knee amputation Description of Procedure: dictated Surgeon/Flight Attendant: Easton Powell MD, FACS Findings: as above Specimens Removed: Right leg above-knee potation Estimated Blood Loss: 100 cc Complications: None Progress Notes: Patient with returned to the floor after PACU
[2024-08-26 20:36] VITALS: RESP 18
--- NOTE | 2024-08-27 05:18 | EKG ---
Test Reason : Tachycardia Blood Pressure : */* mmHG Vent. Rate : 128 BPM Atrial Rate : * BPM P-R Int : * ms QRS Dur : 96 ms QT Int : 366 ms P-R-T Axes : * 43 89 degrees QTc Int : 534 ms Sinus tachycardia Nonspecific ST and T wave abnormality Abnormal ECG When compared with ECG of 20-AUG-2024 14:15, Vent. rate has increased BY [address] now depressed in Inferior leads Non-specific change in ST segment in Anterolateral leads Confirmed by Navi Alex MD ([id number]) on 08/27/2024 7:23:59 AM Referred By: Confirmed By: Navi Alex MD
[2024-08-27 06:03] LABS: BASOPHILS % (AUTO) 0.2 % (0.2-1.0); HEMATOCRIT 30.4 % (42.0-54.0); HEMOGLOBIN 9.7 g/dL (13.5-18.0); LYMPHOCYTES # (AUTO) 0.8 X10^3/uL (1.3-2.9); LYMPHOCYTES % (AUTO) 4.9 % (21.0-51.0); MEAN CORPUSCULAR HEMOGLOBIN 27.6 pg (27.0-34.0); MEAN CORPUSCULAR VOLUME 86.1 fL (80.0-100.0); MEAN PLATELET VOLUME 7.5 fL (7.4-11.0); MONOCYTES # (AUTO) 1.1 x10^3/uL (0.3-0.8); NEUTROPHILS # (AUTO) 14.3 x10^3/uL (2.2-4.8); NEUTROPHILS % (AUTO) 87.9 % (42.0-75.0); PLATELET COUNT 316 X10^3/uL (150.0-450.0); RED BLOOD COUNT 3.53 X10^6/uL (4.7-6.0); RED CELL DISTRIBUTION WIDTH 17.1 % (11.6-16.5); WHITE BLOOD COUNT 16.3 X10^3/uL (3.6-10.0)
[2024-08-27 07:53] VITALS: BP 136/68
--- NOTE | 2024-08-27 09:25 | W.DIS.FURT ---
Summary of Discharge Discharge Summary of Date Date of Exam: 08/27/24 Admission Date Date of Admission: 08/19/24 Admission Diagnosis Hospital Course: This is an 79-year-old male with past history of severe peripheral vascular disease of the left leg requiring left above-knee amputation. He is a resident at a skilled nurse facility and was seen in the hospital in [place], [place] for wounds to the right foot with evidence of severe osteomyelitis. He was transferred to [facility] for me to care for him and plan right above-knee potation. Patient was anemic when he presented with hemoglobin less than 7 g but the patient at that time said he was Restoration and he was seen in consultation by Dr. Tucker who placed him on Procrit and iron infusions. Patient had been scheduled for above-knee amputation but initially refused. His family said that he really was not Restoration and he did receive 2 units of blood. Family did discussed with him and convinced him to proceed with right above-knee amputation which was performed on August 26. He has done well. Pain is under control. Hemoglobin the day of discharge is 9.7 g. Creatinine is 2.10 at time of discharge which is near his baseline on admission. He will follow-up with me in 1 week in the office. Vital Signs: Vital Signs (72 hours) 08/24/24 11:39 08/24/24 15:43 08/24/24 15:52 Temperature 98.6 F 98.6 F 98.6 F Pulse Rate 93 H Pulse Rate [Right Radial] 93 H 102 H Respiratory Rate 21 21 20 Blood Pressure 125/71 Blood Pressure [Left Arm] Blood Pressure [Right Arm] 125/71 132/70 O2 Sat by Pulse Oximetry 100 100 100 Oxygen Delivery Method Nasal Cannula Nasal Cannula Oxygen Flow Rate 2 2 FIO2% 08/24/24 18:54 08/24/24 19:00 08/24/24 19:54 Temperature Pulse Rate Pulse Rate [Right Radial] Respiratory Rate 20 20 Blood Pressure Blood Pressure [Left Arm] Blood Pressure [Right Arm] O2 Sat by Pulse Oximetry Oxygen Delivery Method Nasal Cannula Oxygen Flow Rate 2 FIO2% 08/24/24 20:00 08/25/24 00:00 08/25/24 04:00 Temperature 98.4 F 98.6 F 98.4 F Pulse Rate Pulse Rate [Right Radial] 89 77 98 H Respiratory Rate 20 18 19 Blood Pressure Blood Pressure [Left Arm] Blood Pressure [Right Arm] 123/58 155/65 147/71 O2 Sat by Pulse Oximetry 100 100 100 Oxygen Delivery Method Nasal Cannula Nasal Cannula Nasal Cannula Oxygen Flow Rate 2 2 2 FIO2% 08/25/24 07:00 08/25/24 07:41 08/25/24 11:43 Temperature 98.4 F 98.3 F Pulse Rate Pulse Rate [Right Radial] 98 H 93 H Respiratory Rate 17 19 Blood Pressure Blood Pressure [Left Arm] Blood Pressure [Right Arm] 160/78 160/93 O2 Sat by Pulse Oximetry 100 100 Oxygen Delivery Method Nasal Cannula Nasal Cannula Nasal Cannula Oxygen Flow Rate 2 2 2 FIO2% 08/25/24 12:38 08/25/24 16:00 08/25/24 16:06 Temperature 98.3 F 98.1 F Pulse Rate 93 H Pulse Rate [Right Radial] 90 Respiratory Rate 19 18 19 Blood Pressure 160/93 Blood Pressure [Left Arm] Blood Pressure [Right Arm] 145/69 O2 Sat by Pulse Oximetry 100 100 Oxygen Delivery Method Nasal Cannula Oxygen Flow Rate 2 FIO2% 08/25/24 17:06 08/25/24 19:00 08/25/24 20:00 Temperature 99.6 F Pulse Rate Pulse Rate [Right Radial] 87 Respiratory Rate 19 18 Blood Pressure Blood Pressure [Left Arm] Blood Pressure [Right Arm] 131/60 O2 Sat by Pulse Oximetry 100 Oxygen Delivery Method Nasal Cannula Nasal Cannula Oxygen Flow Rate 2 2 FIO2% 08/26/24 00:00 08/26/24 04:00 08/26/24 07:00 Temperature 98.9 F 98.8 F Pulse Rate Pulse Rate [Right Radial] 88 92 H Respiratory Rate 18 17 Blood Pressure Blood Pressure [Left Arm] Blood Pressure [Right Arm] 161/76 134/66 O2 Sat by Pulse Oximetry 100 100 Oxygen Delivery Method Nasal Cannula Nasal Cannula Nasal Cannula Oxygen Flow Rate 2 2 2 FIO2% 08/26/24 07:49 08/26/24 11:34 08/26/24 12:25 Temperature 98.8 F 98.8 F 98.1 F Pulse Rate 90 Pulse Rate [Right Radial] 89 89 Respiratory Rate 19 19 18 Blood Pressure 151/73 Blood Pressure [Left Arm] Blood Pressure [Right Arm] 152/72 135/71 O2 Sat by Pulse Oximetry 100 100 100 Oxygen Delivery Method Nasal Cannula Nasal Cannula Nasal Cannula Oxygen Flow Rate 2 2 FIO2% 08/26/24 12:45 08/26/24 13:02 08/26/24 14:11 Temperature 97.2 F L Pulse Rate 82 83 77 Pulse Rate [Right Radial] Respiratory Rate 18 17 16 Blood Pressure 135/80 119/58 122/58 Blood Pressure [Left Arm] Blood Pressure [Right Arm] O2 Sat by Pulse Oximetry 100 100 100 Oxygen Delivery Method Nasal Cannula Nasal Cannula Nasal Cannula Oxygen Flow Rate FIO2% 08/26/24 14:16 08/26/24 14:21 08/26/24 14:26 Temperature Pulse Rate 76 82 76 Pulse Rate [Right Radial] Respiratory Rate 16 14 18 Blood Pressure 139/65 123/80 134/66 Blood Pressure [Left Arm] Blood Pressure [Right Arm] O2 Sat by Pulse Oximetry 100 99 100 Oxygen Delivery Method Nasal Cannula Nasal Cannula Nasal Cannula Oxygen Flow Rate FIO2% 08/26/24 14:31 08/26/24 14:36 08/26/24 14:41 Temperature Pulse Rate 78 75 74 Pulse Rate [Right Radial] Respiratory Rate 16 16 16 Blood Pressure 128/63 116/57 118/60 Blood Pressure [Left Arm] Blood Pressure [Right Arm] O2 Sat by Pulse Oximetry 100 100 100 Oxygen Delivery Method Nasal Cannula Nasal Cannula Nasal Cannula Oxygen Flow Rate FIO2% 08/26/24 14:50 08/26/24 15:05 08/26/24 15:20 Temperature 98.0 F 97.6 F 97.6 F Pulse Rate Pulse Rate [Right Radial] 77 73 79 Respiratory Rate 17 18 16 Blood Pressure Blood Pressure [Left Arm] 128/60 115/57 117/61 Blood Pressure [Right Arm] O2 Sat by Pulse Oximetry 100 100 98 Oxygen Delivery Method Oxygen Flow Rate FIO2% 08/26/24 15:35 08/26/24 15:50 08/26/24 16:00 Temperature 97.9 F 98.0 F 98.0 F Pulse Rate Pulse Rate [Right Radial] 80 82 82 Respiratory Rate 16 16 16 Blood Pressure Blood Pressure [Left Arm] 113/55 109/59 Blood Pressure [Right Arm] 109/59 O2 Sat by Pulse Oximetry 100 96 96 Oxygen Delivery Method Nasal Cannula Oxygen Flow Rate 2 FIO2% 08/26/24 16:50 08/26/24 17:50 08/26/24 18:50 Temperature 97.7 F 97.7 F 98.4 F Pulse Rate Pulse Rate [Right Radial] 72 86 86 Respiratory Rate 16 16 16 Blood Pressure Blood Pressure [Left Arm] 112/58 141/67 152/70 Blood Pressure [Right Arm] O2 Sat by Pulse Oximetry 100 100 99 Oxygen Delivery Method Oxygen Flow Rate FIO2% 08/26/24 19:00 08/26/24 19:50 08/26/24 20:00 Temperature 98.1 F 98.1 F Pulse Rate Pulse Rate [Right Radial] 98 H 98 H Respiratory Rate 18 18 Blood Pressure Blood Pressure [Left Arm] 159/74 157/74 Blood Pressure [Right Arm] O2 Sat by Pulse Oximetry 100 100 Oxygen Delivery Method Nasal Cannula Nasal Cannula Oxygen Flow Rate 2 FIO2% 08/27/24 00:00 08/27/24 04:00 08/27/24 05:00 Temperature 98.0 F 98.1 F Pulse Rate Pulse Rate [Right Radial] 97 H 95 H Respiratory Rate 18 18 Blood Pressure Blood Pressure [Left Arm] 155/75 157/73 Blood Pressure [Right Arm] O2 Sat by Pulse Oximetry 100 100 Oxygen Delivery Method Room Air Nasal Cannula Oxygen Flow Rate 2 FIO2% 28 08/27/24 07:52 08/27/24 08:48 Temperature 97.9 F Pulse Rate Pulse Rate [Right Radial] 110 H Respiratory Rate 18 Blood Pressure Blood Pressure [Left Arm] Blood Pressure [Right Arm] 136/68 O2 Sat by Pulse Oximetry 96 Oxygen Delivery Method Nasal Cannula Oxygen Flow Rate 2 FIO2% 28 Labs: Laboratory Last Values WBC 16.3 X10^3/uL (3.6-10.0) H 08/27/24 05:13 RBC 3.53 X10^6/uL (4.7-6.0) L 08/27/24 05:13 Hgb 9.7 g/dL (13.5-18.0) L 08/27/24 05:13 Hct 30.4 % (42.0-54.0) L 08/27/24 05:13 MCV 86.1 fL (80.0-100.0) 08/27/24 05:13 MCH 27.6 pg (27.0-34.0) 08/27/24 05:13 MCHC 32.0 g/dL (33.0-35.0) L 08/27/24 05:13 RDW 17.1 % (11.6-16.5) H 08/27/24 05:13 Plt Count 316 X10^3/uL (150.0-450.0) 08/27/24 05:13 MPV 7.5 fL (7.4-11.0) 08/27/24 05:13 Neut % (Auto) 87.9 % (42.0-75.0) H 08/27/24 05:13 Lymph % (Auto) 4.9 % (21.0-51.0) L 08/27/24 05:13 [place] % (Auto) 7.0 % (0.0-13.0) 08/27/24 05:13 Eos % (Auto) 0.0 % (0.9-2.9) L 08/27/24 05:13 Baso % (Auto) 0.2 % (0.2-1.0) 08/27/24 05:13 Neut # (Auto) 14.3 x10^3/uL (2.2-4.8) H 08/27/24 05:13 Lymph # (Auto) 0.8 X10^3/uL (1.3-2.9) L 08/27/24 05:13 [place] # (Auto) 1.1 x10^3/uL (0.3-0.8) H 08/27/24 05:13 Eos # (Auto) 0.0 x10^3/uL (0.0-0.2) 08/27/24 05:13 Baso # (Auto) 0.0 X10^3/uL (0.0-0.1) 08/27/24 05:13 Absolute Nucleated RBC 0.0 /100WBC 08/27/24 05:13 Absolute Retic 0.0214 10^6/uL 08/21/24 05:21 Percent Retic 0.87 % (0.8-2.2) 08/21/24 05:21 Sodium 139 mmol/L (136-145) 08/26/24 05:18 Corrected Sodium TNP 08/26/24 05:18 Potassium 4.1 mmol/L (3.5-5.1) 08/26/24 05:18 Chloride 106 mmol/L (98-107) 08/26/24 05:18 Carbon Dioxide 24.1 mmol/L (21-32) 08/26/24 05:18 BUN 22 mg/dL (7-18) H 08/26/24 05:18 Creatinine 2.10 mg/dL (0.70-1.30) H 08/26/24 05:18 Est GFR (MDRD) Af Amer 39 (>60) L 08/26/24 05:18 Est GFR (MDRD) Non-Af 32 (>60) L 08/26/24 05:18 Glucose 93 mg/dL (65-99) 08/26/24 05:18 POC Glucose (mg/dL) 164 mg/dL (65-99) H 08/27/24 05:09 Calcium 8.4 mg/dL (8.5-10.1) L 08/26/24 05:18 Corrected Calcium 9.9 mg/dL (8.5-10.1) 08/26/24 05:18 Iron 32 ug/dL (50-175) L 08/21/24 05:21 TIBC 149 ug/dL (250-450) L 08/21/24 05:21 Transferrin 133 mg/dL (202-364) L 08/21/24 05:21 Ferritin 446 ng/mL (26-388) H 08/21/24 05:21 Total Bilirubin 0.20 mg/dL (0.2-1.0) 08/26/24 05:18 AST 17 Units/L (15-37) 08/26/24 05:18 ALT 25 Units/L (12-78) 08/26/24 05:18 Alkaline Phosphatase 101 Units/L (46-116) 08/26/24 05:18 Total Protein 8.1 g/dL (6.4-8.2) 08/26/24 05:18 Albumin 2.1 g/dL (3.4-5.0) L 08/26/24 05:18 Globulin 6.0 g/dL (2.5-4.5) H 08/26/24 05:18 Albumin/Globulin Ratio 0.4 Ratio (1.1-2.1) L 08/26/24 05:18 Vitamin B12 > 2000 pg/mL (193-986) H 08/21/24 05:21 Folate > 20.0 ng/mL (>8.6) 08/21/24 05:21 Blood Type A POSITIVE 08/24/24 16:50 Antibody Screen Negative 08/24/24 16:50 Crossmatch See Detail 08/24/24 16:50 Reason For Visit: WOUNDS TO RIGHT FOOT Discharge Diagnosis All Active Problems (Updated 08/21/24 @ 18:14 by Bill Tucker MD) Anemia due to chronic kidney disease (Acute) Cardiac murmur (Acute) Acute cerebrovascular accident (CVA) (Acute) Dysphagia (Acute) BPH (benign prostatic hyperplasia) (Acute) Gout (Acute) Hyperlipidemia (Acute) Constipation (Acute) Acid reflux (Acute) Depression (Acute) Essential (primary) hypertension (Acute) Atherosclerosis of [place] arteries of extremities with intermittent claudication, right leg (Acute) Plan of Treatment: Continue with present treatment and follow up plan. Pt is to keep follow up appointment as instructed and take medications as ordered. Discharge Medications Discharge Medications: promethazine (From Phenergan) Adverse Reaction (Verified 08/19/24 18:26) CONTINUE taking the following medications acetaminophen 325 mg tablet 650 mg PO Q4H PRN pain,fever 08/19/24 [History] allopurinol 100 mg tablet 100 mg PO QDAY 08/19/24 [History] amino acids-protein hydrolysate 15 gram-60 kcal/30 mL oral liquid (Proteinex) 60 ml PO TID 08/19/24 [History] amlodipine 5 mg tablet 5 mg PO QDAY 08/19/24 [History] aspirin 81 mg chewable tablet 81 mg PO QDAY 08/19/24 [History] atorvastatin 80 mg tablet 80 mg PO HS 08/19/24 [History] cholecalciferol (vitamin D3) 25 mcg (1,000 unit) tablet 25 mcg PO QDAY 08/19/24 [History] collagenase clostridium histo. 250 unit/gram topical ointment (Santyl) 1 applic topical USEASDIRECTD 08/19/24 [History] dapagliflozin propanediol 5 mg tablet (Farxiga) 5 mg PO QDAY 08/19/24 [History] dextromethorphan-guaifenesin 5 mg-100 mg/5 mL oral liquid (Robitussin Cough- Chest Congestion DM) 10 ml PO Q4HR PRN 08/19/24 [History] docusate sodium 100 mg capsule (Colace) 100 mg PO BID 08/19/24 [History] famotidine 40 mg tablet (Pepcid) 40 mg PO HS 08/19/24 [History] folic acid 1 mg tablet 1 mg PO DAILY 08/19/24 [History] gabapentin 100 mg tablet 200 mg PO BID 08/19/24 [History] hydrocodone 5 mg-acetaminophen 325 mg tablet 1 tab PO Q6HR PRN Pain 08/19/24 [History] magnesium hydroxide 400 mg/5 mL oral suspension (Milk of Magnesia) See Rx Instructions .Route .COMPLEX 08/19/24 [History] melatonin 5 mg tablet 10 mg PO HS PRN 08/19/24 [History] metoprolol succinate 25 mg tablet,extended release 24 hr 25 mg PO QDAY 08/19/24 [History] mirtazapine 7.5 mg tablet 7.5 mg PO QHS 08/19/24 [History] multivitamin 1 tab PO DAILY 08/19/24 [History] nut.tx.gluc.intol,lac-free,soy (Glucerna oral liquid) 1 ea PO TID 08/19/24 [History] nutritional supplements 1 ea PO BID 08/19/24 [History] nystatin-triamcinolone 100,000 unit/g-0.1 % topical cream 1 applic topical QDAY 08/19/24 [History] polyethylene glycol 3350 17 gram/dose oral powder (Miralax) 17 g PO DAILY 08/19/24 [History] sodium hypochlorite 0.25 % solution (Dakin's Solution) 1 applic topical USEASDIRECTD 08/19/24 [History] tamsulosin 0.4 mg capsule 0.4 mg PO DAILY 08/19/24 [History] zinc oxide 1 applic topical DAILY 08/19/24 [History] Discharge Disposition Assessment: see hospital course Discharge Plan Discharge Plan Hospital Course: This is an 79-year-old male with past history of severe peripheral vascular disease of the left leg requiring left above-knee amputation. He is a resident at a skilled nurse facility and was seen in the hospital in [place], [place] for wounds to the right foot with evidence of severe osteomyelitis. He was transferred to [facility] for ct to care for him and plan right above-knee potation. Patient was anemic when he presented with hemoglobin less than 7 g but the patient at that time said he was Restoration and he was seen in consultation by Dr. Tucker who placed him on Procrit and iron infusions. Patient had been scheduled for above-knee amputation but initially refused. His family said that he really was not Restoration and he did receive 2 units of blood. Family did discussed with him and convinced him to proceed with right above-knee amputation which was performed on August 26. He has done well. Pain is under control. Hemoglobin the day of discharge is 9.7 g. Creatinine is 2.10 at time of discharge which is near his baseline on admission. He will follow-up with me in 1 week in the office. Patient Disposition: [facility] Condition: Stable Health Concerns: Post Hospitalization: new medications and changes needed to prevent readmission or further decline. Pt educated and given instructions on all concerns. Care Plan Goals: Problem: Pain/Alteration in Comfort Goal: Improve/ Resolve Pain; Achieve Pain Tolerance Instructions: Take pain medications as prescribed. Contact your primary care provider if your pain is unrelieved or worsens. Follow up with primary care provider as directed. Plan of Treatment: Continue with present treatment and follow up plan. Pt is to keep follow up appointment as instructed and take medications as ordered. Assessment: see hospital course Prescription drug monitoring program results: PDMP was not reviewed Prescriptions: Continued multivitamin Tablet 1 tab PO DAILY atorvastatin 80 mg tablet 80 mg PO HS hydrocodone-acetaminophen 5-325 mg Tablet 1 tab PO Q6HR PRN (Reason: Pain) famotidine [Pepcid] 40 mg Tablet 40 mg PO HS amlodipine 5 mg tablet 5 mg PO QDAY allopurinol 100 mg tablet 100 mg PO QDAY [place] Powder 1 ea PO BID tamsulosin 0.4 mg Capsule 0.4 mg PO DAILY docusate sodium [Colace] 100 mg Capsule 100 mg PO BID aspirin 81 mg Tablet,Chewable 81 mg PO QDAY folic acid 1 mg Tablet 1 mg PO DAILY metoprolol succinate 25 mg Tablet Extended Release 24 Hr 25 mg PO QDAY Santyl 250 unit/gram ointment 1 applic TOPICAL USEASDIRECTD Patient Comments: [NO ORIGINAL SIG] Rx Instructions: Apply to right lateral ankle topically every day shift on Mon, Wed, and Fri for arterial ulcer. Cleanse right lateral ankle wound with dakings solution, pat dry with 4x4s, apply santyl directly to wound bed, apply xeroform over wound bed, wrap ankle with Kerlix and secure with tape. polyethylene glycol 3350 [Miralax] 17 gram/dose Powder 17 g PO DAILY Rx Instructions: mix in 6-8 oz water/juice Dakin's Solution 0.25 % Solution 1 applic topical USEASDIRECTD Rx Instructions: Apply to right lateral ankle topically every day shift on Mon, Wed, and Fri for arterial ulcer. Cleanse right lateral ankle wound with dakings solution, pat dry with 4x4s, apply santyl directly to wound bed, apply xeroform over wound bed, wrap ankle with Kerlix and secure with tape. Glucerna Liquid 1 ea PO TID zinc oxide Ointment 1 applic TOPICAL DAILY Rx Instructions: Apply every day for moisture associated skin damage. Mix with equal parts of zinc and apply to buttocks. Cover with a dry dressing. mirtazapine 7.5 mg Tablet 7.5 mg PO QHS gabapentin 100 mg Tablet 200 mg PO BID cholecalciferol (vitamin D3) 25 mcg (1,000 unit) Tablet 25 mcg PO QDAY Proteinex 15-60 gram-kcal/30 mL Liquid 60 ml PO TID melatonin 5 mg Tablet 10 mg PO HS PRN dapagliflozin propanediol [Farxiga] 5 mg tablet 5 mg PO QDAY acetaminophen 325 mg Tablet 650 mg PO Q4H PRN (Reason: pain,fever) nystatin-triamcinolone 100,000-0.1 unit/g-% Cream 1 applic TOPICAL QDAY Rx Instructions: Apply every day for moisture associated skin damage. Mix with equal parts of zinc and apply to buttocks. Cover with a dry dressing. dextromethorphan-guaifenesin [Robitussin Cough-Chest [place] DM] 5-100 mg/5 mL Liquid 10 ml PO Q4HR PRN magnesium hydroxide [Milk of Magnesia] 400 mg/5 mL Suspension See Rx Instructions .ROUTE .COMPLEX Rx Instructions: Milk of Magnesia Suspension 1200mg/15ml. Give 30ml by mouth every 24hrs as needed for constipation. Orders to Discharge Patient Discharge Orders: Discharge (Routine); Ordered 08/27/24 Ordered By: Ej Powell Follow ups/Referrals Follow ups/Referrals: Ej Powell [Primary Care Provider, Unknown] - 1 WEEK Instructions Instructions: Stump and Prosthesis Care, Living With an Amputation, Phantom Limb Pain Stand Alone Forms: Excuse From Work or School, Find Help Web Site, Post Hospital Follow Up Care Print Language: DOMINICAN
[2024-08-27 11:46] VITALS: PULSE 107; TEMP 98.1; O2SAT 99
--- NOTE | 2024-08-27 12:00 | NOTE.SOAP ---
Soap Note Note for Day of Date of Exam: 08/27/24 Subjective Data Subjective Data: AKA yesterday. Stable today other than tachycardia and leukocytosis. Plans are to discharge to the long term today. Objective Data Objective Data: Thin, elderly male in no acute distress. Heart regular rate and rhythm with systolic murmur. Lungs are clear. Resting comfortably. Bowel sounds present. 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 Leukocytosis with sinus tachycardia Chronic iron deficiency anemia Plan Plan: Discharged on p.o. doxycycline, or another antibiotic if surgery request. Blood cultures today to monitor over the weekend. Suspect it is a stress reaction to his recent transfusion and amputation yesterday.
--- NOTE | 2024-08-27 16:31 | DR.OPNOTE ---
OP NOTE Pre-Op Diagnosis: Osteomyelitis right foot Post-Op Diagnosis: Same Procedure Date Date Of Procedure: 08/26/24 Procedure: PROCEDURE: Right above-knee amputation NARRATIVE: The patient was taken to the operative suite and placed in the supine position. Entire right leg prepped and draped in sterile fashion. Patient previously had a spinal anesthetic placed and had good relief of pain from this. Timeout for the procedure obtained. [place] incision was made 1 handsbreadth above the patella extending this incision throught the skin with the 15 knife blade and dividing the anterior thigh muscles with electrocautery down to the femur. The periosteum of the femur elevated with a periosteal elevator. The femur then divided with a Gigli saw and amputation knife used to complete the amputation. All bleeding vessels were clamped and tied with 3-0 silk suture ligatures. The sciatic nerve was shortened and suture-ligated with a 2-0 silk suture ligature. All remaining bleeding then stopped with electrocautery . Both flaps irrigated with saline. The 2 flaps of the muscles approximated with interrupted 0 Vicryl sutures. The skin closed with skin judi. Patient tolerated this well. Dressing applied. Type of Anesthesia: Spinal Anesthetic Anesthesia Comment: Tolerated spinal well Findings: As above Specimen/Pathology: Right leg above-knee amputation Type of Fluids Used:: Lactated Ringers EBL: Less than 50 cc Complications:: None Needle/Sponge Count:: Correct Disposition/Condition: Pt. tolerated procedure without difficulty. Taken back to the floor in stable condition.
[2024-08-30] MEDS ORDERED: STERILE WATER IRRIGATION IR ONE (14:00)
== END 2024-08-27 12:15 | DRG 239 ==
LOC: MED/SURG 17:05
PROVIDERS: ADMIT Surgery; ATTEND Surgery
DX: E11.65 Type 2 diabetes mellitus with hyperglycemia; R40.4 Transient alteration of awareness; Z89.612 Acquired absence of left leg above knee; N40.1 Benign prostatic hyperplasia with lower urinary tract symptoms; I70.211 Atherosclerosis of native arteries of extremities with intermittent claudication, right leg; K21.9 Gastro-esophageal reflux disease without esophagitis; E78.5 Hyperlipidemia, unspecified; M1A.30X0 Chronic gout due to renal impairment, unspecified site, without tophus (tophi); R01.1 Cardiac murmur, unspecified; I69.822 Dysarthria following other cerebrovascular disease; R41.89 Other symptoms and signs involving cognitive functions and awareness; K59.04 Chronic idiopathic constipation; R00.0 Tachycardia, unspecified; N39.43 Post-void dribbling; Z86.79 Personal history of other diseases of the circulatory system; R26.89 Other abnormalities of gait and mobility; D63.1 Anemia in chronic kidney disease; R94.31 Abnormal electrocardiogram [ECG] [EKG]; L89.512 Pressure ulcer of right ankle, stage 2; I12.9 Hypertensive chronic kidney disease with stage 1 through stage 4 chronic kidney disease, or unspecified chronic kidney disease; E87.5 Hyperkalemia; I96 Gangrene, not elsewhere classified; R13.11 Dysphagia, oral phase; Z01.810 Encounter for preprocedural cardiovascular examination; Z01.811 Encounter for preprocedural respiratory examination; R41.841 Cognitive communication deficit; L89.152 Pressure ulcer of sacral region, stage 2; L97.518 Non-pressure chronic ulcer of other part of right foot with other specified severity; E11.621 Type 2 diabetes mellitus with foot ulcer; N50.89 Other specified disorders of the male genital organs; I63.89 Other cerebral infarction; L89.613 Pressure ulcer of right heel, stage 3; D50.8 Other iron deficiency anemias; E11.51 Type 2 diabetes mellitus with diabetic peripheral angiopathy without gangrene; F33.41 Major depressive disorder, recurrent, in partial remission; I69.891 Dysphagia following other cerebrovascular disease; N18.32 Chronic kidney disease, stage 3b; I69.851 Hemiplegia and hemiparesis following other cerebrovascular disease affecting right dominant side